=== PATIENT | male | born 1955 | race Caucasian/White ===

== ENCOUNTER 2020-12-03 18:54 | Inpatient (IN) | payer MEDICARE, MEDICAID ==
[~2020-12-03] VITALS: Ht 193 cm; Wt 91.6 kg
--- NOTE | 2020-12-03 19:04 | EKG ---
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
[2020-12-03] MEDS ORDERED: IV NORMAL SALINE 1000ML BAG 1,000 ML IV ONE (19:15)
[2020-12-03] MEDS ORDERED: fentaNYL PF VIAL 100 MCG/2 ML VIAL IV ONE ×2 (19:45→22:15)
--- NOTE | 2020-12-03 19:48 | PHYS DOC ---
Past Medical History Past Medical History: COPD, High Cholesterol, Heart Disease Past Surgical History: Angioplasty, Coronary Bypass Surgery Smoking Status: Current Every Day Smoker Alcohol Use: Occasionally Drug Use: None General Adult EDM: Chief Complaint: CHEST PAIN HPI: HPI: Patient is a 65 year old male who presents with chest pain and shortness of breath. Onset was a week ago, but today was a little worse. Pain is pressure in right chest and achy arms. Pain is constant at night. Nothing improves. Activity worsens. No dizziness, no nausea, no vomiting. No leg swelling. Review of Systems: Review of Systems: Constitutional: Denies fever or chills Eyes: Denies redness or eye pain HENT: Denies nasal congestion or sore throat Respiratory: Denies cough Cardiovascular: Denies palpitations GI: Denies abdominal pain, nausea, or vomiting : Denies dysuria or hematuria Musculoskeletal: Denies back pain or joint pain Integument: Denies rash or skin lesions Neurologic: Denies headache, focal weakness or sensory changes Complete systems were reviewed and found to be within normal limits, except as documented in this note. Heart Score: C/O Chest Pain: Yes HEART Score for Chest Pain: HEART Score for Chest Pain Response (Comments) Value History Highly Suspicious 2 ECG Normal 0 Age >45 - < 65 1 Risk Factors >3 Risk Factors or Hx CAD 2 Troponin < Normal Limit 0 Total 5 Risk Factors: Risk Factors: DM, Current or recent (<one month) smoker, HTN, HLP, family history of CAD, obesity. Risk Scores: Score 0 - 3: 2.5% MACE over next 6 weeks - Discharge Home Score 4 - 6: 20.3% MACE over next 6 weeks - Admit for Clinical Observation Score 7 - 10: 72.7% MACE over next 6 weeks - Early Invasive Strategies Current Medications: Current Medications Medications (Trade) Dose Ordered Sig/Jose Antonio Start Time Stop Time Status Last Admin Dose Admin Sodium Chloride 1,000 ml @ 1,000 mls/hr 1X ONCE 12/03/20 19:15 12/03/20 20:14 UNV Physical Exam: PE: Constitutional: Well developed, well nourished, no acute distress, non-toxic appearance HENT: Normocephalic, atraumatic Eyes: EOMI, conjunctiva normal, no discharge Neck: Normal range of motion, mild posterior tenderness, supple Lungs & Thorax: No respiratory distress, equal chest rise and fall, clear to auscultation Cardiovascular: Regular rate and rhythm. No murmurs. Abdomen: Soft, no tenderness Skin: Warm, dry, no erythema, no rash Back: No tenderness, no CVA tenderness Extremities: No tenderness, ROM intact, no edema Neurologic: Alert and oriented X 3, normal motor function, normal sensory function, no focal deficits noted Psychologic: Affect normal, judgment normal EKG: EKG: obtained at 19:02 hrs 85 bpm QT 364 ms QTc 439 ms Sinus rhythm obtained 21:44 hrs 86 bpm QT 372 ms QTc 448 ms sinus rhythm Radiology/Procedures: Radiology/Procedures: PROCEDURE: CT ANGIOGRAPHY CHEST Exam: CT of chest with contrast INDICATION: Chest pain TECHNIQUE: Sequential axial images through the chest obtained following the administration of 100 mL of Omni 300 IV contrast. Sagittal and coronal reformatted images were reconstructed from the axial data and reviewed. 3-D reformatted images were reconstructed from the axial data and reviewed. Exposure: One or more of the following in the visualized dose reduction techniques were utilized for this examination: 1. Automated exposure control 2. Adjustment of the MA and/or KV according to patient size 3. Use of iterative of reconstructive technique Comparisons: 06/13/2020 FINDINGS: There is a 3 cm nodule in the left lobe of the thyroid gland. No enlarged mediastinal lymph nodes are identified. Heart size is normal. No pericardial effusion. Thoracic aorta has a normal cou rse and caliber. Pulmonary artery is not enlarged. Airways are patent. No consolidation or pneumothorax. Strandy opacities the dependent portion lungs likely representing atelectasis. No suspicious lung nodules. No pleural effusion or thickening. Visualized upper abdomen is unremarkable. No suspicious osseous lesions or acute fractures. IMPRESSION: 1. No pulmonary embolus identified within the main, lobar or segmental pulmonary arteries. 2. A 2 cm nodule in the left lobe of thyroid gland. Further evaluation with nonemergent/outpatient thyroid ultrasound is recommended if not already performed. Electronically signed by: Zuly Nicholson MD (12/03/2020 9:37 PM) [facility] Course & Med Decision Making: Course & Med Decision Making Pertinent Labs and Imaging studies reviewed. (See chart for details) Patient arrived via EMS. Patient presents with chest pain and shortness of breath. Patient does take aspirin as part of his medicine regimen and did take 4 today. EKG does not suggest NE. PE was unremarkable. Ordering CT angio. Cardiac enzyme levels normal. CT does not suggest pulmonary embolism. Prescribing pain meds. Will stay overnight and see cardiology in the morning. Patient requiring admission for further evaluation and treatment. Discussed with (hospitalist) who is in agreement with admission. Discussed findings and plan with patient, who acknowledges understanding and agreement. Karlene Disclaimer: Karlene Disclaimer: This electronic medical record was generated, in whole or in part, using a voice recognition dictation system. ISMA PATEL DO Dec 03, 2020 19:47
[2020-12-03 20:01] LABS: BASO # 0.1 x10^3/uL (0.0-0.2); BASO % 1 % (0-3); EOS # 0.1 x10^3/uL (0.0-0.7); EOS % 2 % (0-3); HEMATOCRIT 43.4 % (39.0-53.0); HEMOGLOBIN 14.7 g/dL (13.0-17.5); LYMPH # 1.6 x10^3/uL (1.0-4.8); LYMPH % 23 % (24-48); MEAN CORPUSCULAR HEMOGLOBIN 32 pg (25-35); MEAN CORPUSCULAR HGB CONC 34 g/dL (31-37); MEAN CORPUSCULAR VOLUME 94 fL (79-100); MONO # 0.5 x10^3/uL (0.0-1.1); MONO % 7 % (0-9); NEUT # 4.6 x10^3/uL (1.8-7.7); NEUT % 67 % (31-73); PLATELET COUNT 156 x10^3/uL (140-400); RED BLOOD COUNT 4.64 x10^6/uL (4.30-5.70); RED CELL DISTRIBUTION WIDTH 14.6 % (11.5-14.5); WHITE BLOOD COUNT 6.8 x10^3/uL (4.0-11.0)
[2020-12-03 20:03] LABS: CALCIUM 8.7 mg/dL (8.5-10.1); CREATININE 0.8 mg/dL (0.7-1.3); GFR 97.3; POTASSIUM 4.2 mmol/L (3.5-5.1)
[2020-12-03 20:09] LABS: ALBUMIN 3.5 g/dL (3.4-5.0); ALBUMIN/GLOBULIN RATIO 1.1 (1.0-1.7); MAGNESIUM 2.3 mg/dL (1.8-2.4); TOTAL BILIRUBIN 0.3 mg/dL (0.2-1.0); TOTAL PROTEIN 6.8 g/dL (6.4-8.2)
[2020-12-03] MEDS ORDERED: CONTRAST GIVEN. MC PRN (20:15)
[2020-12-03] MEDS ORDERED: IOHEXOL 350 MG/ML 100 ML VIAL. IV ONE (20:15)
--- NOTE | 2020-12-03 21:39 | RAD ---
Exam: CT of chest with contrast INDICATION: Chest pain TECHNIQUE: Sequential axial images through the chest obtained following the administration of 100 mL of Omni 300 IV contrast. Sagittal and coronal reformatted images were reconstructed from the axial da ta and reviewed. 3-D reformatted images were reconstructed from the axial data and reviewed. Exposure: One or more of the following in the visualized dose reduction techniques were utilized for this examination: 1. Automated exposure control 2. Adjustment of the MA and/or KV according to patient size 3. Use of iterative of reconstructive technique Comparisons: 06/13/2020 FINDINGS: There is a 3 cm nodule in the left lobe of the thyroid gland. No enlarged mediastinal lymph nodes are identified. Heart size is normal. No pericardial effusion. Thoracic aorta has a normal course and caliber. Pulmon amandeep artery is not enlarged. Airways are patent. No consolidation or pneumothorax. Strandy opacities the dependent portion lungs l ikely representing atelectasis. No suspicious lung nodules. No pleural effusion or thickening. Visualized upper abdomen is unremarkable. No suspicious osseous lesions or acute fractures. IMPRESSION: 1. No pulmonary embolus identified within the main, lobar or segmental pulmonary arteries. 2. A 2 cm nodule in the left lobe of thyroid gland. Further evaluation with nonemergent/outpatient t hyroid ultrasound is recommended if not already performed. Electronically signed by: Zuly Nicholson MD (12/03/2020 9:37 PM) [facility]
[2020-12-03] MEDS ORDERED: ONDANSETRON PF 4 MG/2 ML VIAL. IV PRN (23:15)
[2020-12-04] VITALS (7 sets, daily range): BP systolic 118–157; BP diastolic 73–91
[2020-12-04] MEDS: fentaNYL PF VIAL 100 MCG/2 ML VIAL IV PRN (00:51)
--- NOTE | 2020-12-04 00:56 | NUR ---
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 Call light placed in reach.
[2020-12-04] MEDS ORDERED: METO50TA6 PO (01:19)
[2020-12-04] MEDS ORDERED: CRESTOR40 MG PO (01:19)
[2020-12-04] MEDS ORDERED: TICA90TA PO (01:19)
[2020-12-04] MEDS ORDERED: PANT40TA77 PO (01:19)
[2020-12-04] MEDS ORDERED: LISI20TA18 PO (01:19)
[2020-12-04] MEDS ORDERED: ASPI-630 PO (01:19)
[2020-12-04] MEDS ORDERED: ALBU2.5V8 IH (01:19)
[2020-12-04 05:09] LABS: CHOLESTEROL/HDL RATIO 3.2
--- NOTE | 2020-12-04 07:20 | PDOC1 ---
History and Physical Date of Admission Date of Admission DATE: 12/04/20 TIME: 07:15 Identification/Chief Complaint Chief Complaint Chest pain Source Source: Chart review, Patient History of Present Illness History of Present Illness Patient 65-year-old male with past medical history CAD with stents, HLD, COPD, tobacco abuse, presents to the ED with complaints of substernal chest pain for the past week. Reports achy chest pain that feels more like pressure, 8/10, that radiates to his left arm. Associated diaphoresis and shortness of breath, but states his shortness of breath is chronic. Symptoms worse with activity, and he denies any alleviating factors. Denies any nausea or vomiting. He took four aspirin 81 mg at home today for symptoms without improvement. Labs in the ED are largely unremarkable aside from triglycerides 159, BUN 17, creatinine 0.8, with BUN/creatinine ratio 21. Troponins <0.017 x 2. CTA chest without any evidence of PE, but did comment on 2 cm left thyroid nodule. Patient was admitted for further medical management. Past Medical History Past Medical History COPD, CA Past Surgical History Past Surgical History Cardiac stents x9 Family History Family History: Heart Disease Social History Smoke: 1 pack per day ALCOHOL: occassional Drugs: None Current Medications Current Medications Current Medications Sodium Chloride 1,000 ml @ 1,000 mls/hr 1X ONCE IV Last administered on 12/03/20at 19:35; Start 12/03/20 at 19:15; Stop 12/03/20 at 20:14; Status DC Fentanyl Citrate (Fentanyl 2ml Vial) 50 mcg 1X ONCE IV Last administered on 12/03/20at 20:00; Start 12/03/20 at 19:45; Stop 12/03/20 at 19:46; Status DC Iohexol (Omnipaque 350 Mg/ml) 100 ml 1X ONCE IV Last administered on 12/03/20at 21:22; Start 12/03/20 at 20:15; Stop 12/03/20 at 20:16; Status DC Info (CONTRAST GIVEN -- Rx MONITORING) 1 each PRN DAILY PRN MC SEE COMMENTS; Start 12/03/20 at 20:15; Stop 12/05/20 at 20:14 Fentanyl Citrate (Fentanyl 2ml Vial) 50 mcg 1X ONCE IV Last administered on 12/03/20at 22:17; Start 12/03/20 at 22:15; Stop 12/03/20 at 22:16; Status DC Ondansetron HCl (Zofran) 4 mg PRN Q8HRS PRN IV NAUSEA/VOMITING; Start 12/03/20 at 23:15; Stop 12/04/20 at 23:14 Fentanyl Citrate (Fentanyl 2ml Vial) 50 mcg PRN Q2HR PRN IV PAIN Last administered on 12/04/20at 00:51; Start 12/03/20 at 23:15 Active Scripts Active Reported Proair Hfa Inhaler (Albuterol Sulfate) 8.5 Gm Hfa.aer.ad 2 Puff IH PRN Q4-6HRS PRN 21 Days Protonix (Pantoprazole Sodium) 40 Mg Tablet.dr 40 Mg PO DAILYAC Crestor (Rosuvastatin Calcium) 40 Mg Tablet 1 Tab PO DAILY Lisinopril 20 Mg Tablet 1 Tab PO DAILY Metoprolol Tartrate 50 Mg Tablet 1 Tab PO BID Aspirin 81 Mg Tab.chew 1 Tab PO DAILY Brilinta (Ticagrelor) 90 Mg Tablet 90 Mg PO BID Allergies Allergies: Coded Allergies: No Known Drug Allergies (Unverified , 12/03/20) ROS Review of System GENERAL: Diaphoresis. No history of weight change, weakness or fevers. SKIN: No bruising, hair changes or rashes. EYES: No blurred, double or loss of vision. NOSE AND THROAT: No history of nosebleeds, hoarseness or sore throat. HEART: Chest pain. Denies palpitations. LUNGS: Shortness of breath. Denies cough, hemoptysis, or wheezing. GASTROINTESTINAL: Denies nausea, vomiting, abdominal pain. GENITOURINARY: Denies dysuria, frequency, urgency, hematuria. NEUROLOGIC: Denies history of numbness, tingling, tremor or weakness. PSYCHIATRIC: Denies anxiety, denies depression. ENDOCRINE: No history of heat or cold intolerance, polyuria or polydipsia. EXTREMITIES: Denies muscle weakness, joint pain, pain on walking or stiffness. Physical Exam Physical Exam General: Alert, Oriented X3, Cooperative, No acute distress HEENT: PERRLA, EOMI Lungs: Clear to auscultation, Normal air movement Heart: RRR, no murmurs Cardiovascular: S1, S2 Abdomen: Normal bowel sounds, Soft, No tenderness Extremities: No clubbing, No cyanosis Skin: No rashes, No significant lesion Neuro: Normal speech, Normal tone, Sensation intact Psych/Mental Status: Mental status NL, Mood NL Vitals Vitals Vital Signs Date Time Temp Pulse Resp B/P (MAP) Pulse Ox O2 Delivery O2 Flow Rate FiO2 12/04/20 02:49 97.5 85 16 151/84 (106) 92 Room Air 97.5 Labs Labs Laboratory Tests Test 12/03/20 19:27 12/04/20 04:10 White Blood Count 6.8 x10^3/uL (4.0-11.0) Red Blood Count 4.64 x10^6/uL (4.30-5.70) Hemoglobin 14.7 g/dL (13.0-17.5) Hematocrit 43.4 % (39.0-53.0) Mean Corpuscular Volume 94 fL (79-100) Mean Corpuscular Hemoglobin 32 pg (25-35) Mean Corpuscular Hemoglobin Concent 34 g/dL (31-37) Red Cell Distribution Width 14.6 % (11.5-14.5) Platelet Count 156 x10^3/uL (140-400) Neutrophils (%) (Auto) 67 % (31-73) Lymphocytes (%) (Auto) 23 % (24-48) Monocytes (%) (Auto) 7 % (0-9) Eosinophils (%) (Auto) 2 % (0-3) Basophils (%) (Auto) 1 % (0-3) Neutrophils # (Auto) 4.6 x10^3/uL (1.8-7.7) Lymphocytes # (Auto) 1.6 x10^3/uL (1.0-4.8) Monocytes # (Auto) 0.5 x10^3/uL (0.0-1.1) Eosinophils # (Auto) 0.1 x10^3/uL (0.0-0.7) Basophils # (Auto) 0.1 x10^3/uL (0.0-0.2) Sodium Level 139 mmol/L (136-145) Potassium Level 4.2 mmol/L (3.5-5.1) Chloride Level 105 mmol/L (98-107) Carbon Dioxide Level 23 mmol/L (21-32) Anion Gap 11 (6-14) Blood Urea Nitrogen 17 mg/dL (8-26) Creatinine 0.8 mg/dL (0.7-1.3) Estimated GFR (Cockcroft-Gault) 97.3 BUN/Creatinine Ratio 21 (6-20) Glucose Level 80 mg/dL (70-99) Calcium Level 8.7 mg/dL (8.5-10.1) Magnesium Level 2.3 mg/dL (1.8-2.4) Total Bilirubin 0.3 mg/dL (0.2-1.0) Aspartate Amino Transf (AST/SGOT) 20 U/L (15-37) Alanine Aminotransferase (ALT/SGPT) 26 U/L (16-63) Alkaline Phosphatase 57 U/L (46-116) Creatine Kinase 121 U/L (39-308) Creatine Kinase MB (Mass) 1.1 ng/mL (0.0-3.6) Creatine Kinase MB Relative Index 0.9 % (0-4) Troponin I Quantitative < 0.017 ng/mL (0.000-0.055) < 0.017 ng/mL (0.000-0.055) MI-Fgs-H-Type Natriuretic Peptide 26 pg/mL (0-124) Total Protein 6.8 g/dL (6.4-8.2) Albumin 3.5 g/dL (3.4-5.0) Albumin/Globulin Ratio 1.1 (1.0-1.7) Lipase 242 U/L (73-393) Triglycerides Level 159 mg/dL (0-150) Cholesterol Level 157 mg/dL (0-200) LDL Cholesterol, Calculated 76 mg/dL (0-100) VLDL Cholesterol, Calculated 32 mg/dL (0-40) Non-HDL Cholesterol Calculated 108 mg/dL (0-129) HDL Cholesterol 49 mg/dL (40-60) Cholesterol/HDL Ratio 3.2 Laboratory Tests Test 12/03/20 19:27 12/04/20 04:10 White Blood Count 6.8 x10^3/uL (4.0-11.0) Red Blood Count 4.64 x10^6/uL (4.30-5.70) Hemoglobin 14.7 g/dL (13.0-17.5) Hematocrit 43.4 % (39.0-53.0) Mean Corpuscular Volume 94 fL (79-100) Mean Corpuscular Hemoglobin 32 pg (25-35) Mean Corpuscular Hemoglobin Concent 34 g/dL (31-37) Red Cell Distribution Width 14.6 % (11.5-14.5) Platelet Count 156 x10^3/uL (140-400) Neutrophils (%) (Auto) 67 % (31-73) Lymphocytes (%) (Auto) 23 % (24-48) Monocytes (%) (Auto) 7 % (0-9) Eosinophils (%) (Auto) 2 % (0-3) Basophils (%) (Auto) 1 % (0-3) Neutrophils # (Auto) 4.6 x10^3/uL (1.8-7.7) Lymphocytes # (Auto) 1.6 x10^3/uL (1.0-4.8) Monocytes # (Auto) 0.5 x10^3/uL (0.0-1.1) Eosinophils # (Auto) 0.1 x10^3/uL (0.0-0.7) Basophils # (Auto) 0.1 x10^3/uL (0.0-0.2) Sodium Level 139 mmol/L (136-145) Potassium Level 4.2 mmol/L (3.5-5.1) Chloride Level 105 mmol/L (98-107) Carbon Dioxide Level 23 mmol/L (21-32) Anion Gap 11 (6-14) Blood Urea Nitrogen 17 mg/dL (8-26) Creatinine 0.8 mg/dL (0.7-1.3) Estimated GFR (Cockcroft-Gault) 97.3 BUN/Creatinine Ratio 21 (6-20) Glucose Level 80 mg/dL (70-99) Calcium Level 8.7 mg/dL (8.5-10.1) Magnesium Level 2.3 mg/dL (1.8-2.4) Total Bilirubin 0.3 mg/dL (0.2-1.0) Aspartate Amino Transf (AST/SGOT) 20 U/L (15-37) Alanine Aminotransferase (ALT/SGPT) 26 U/L (16-63) Alkaline Phosphatase 57 U/L (46-116) Creatine Kinase 121 U/L (39-308) Creatine Kinase MB (Mass) 1.1 ng/mL (0.0-3.6) Creatine Kinase MB Relative Index 0.9 % (0-4) Troponin I Quantitative < 0.017 ng/mL (0.000-0.055) < 0.017 ng/mL (0.000-0.055) ED-Mfi-R-Type Natriuretic Peptide 26 pg/mL (0-124) Total Protein 6.8 g/dL (6.4-8.2) Albumin 3.5 g/dL (3.4-5.0) Albumin/Globulin Ratio 1.1 (1.0-1.7) Lipase 242 U/L (73-393) Triglycerides Level 159 mg/dL (0-150) Cholesterol Level 157 mg/dL (0-200) LDL Cholesterol, Calculated 76 mg/dL (0-100) VLDL Cholesterol, Calculated 32 mg/dL (0-40) Non-HDL Cholesterol Calculated 108 mg/dL (0-129) HDL Cholesterol 49 mg/dL (40-60) Cholesterol/HDL Ratio 3.2 Images Images PATIENT: ABELARDO JACKSON ACCOUNT: [id number] : 1955 LOCATION: ER AGE: 65 SEX: M EXAM STATUS: REG ER ORD. PHYSICIAN: ISMA PATEL DO REASON: chest pain eval for PE PROCEDURE: CT ANGIOGRAPHY CHEST Exam: CT of chest with contrast INDICATION: Chest pain TECHNIQUE: Sequential axial images through the chest obtained following the administration of 100 mL of Omni 300 IV contrast. Sagittal and coronal reformatted images were reconstructed from the axial data and reviewed. 3-D reformatted images were reconstructed from the axial data and reviewed. Exposure: One or more of the following in the visualized dose reduction techniques were utilized for this examination: 1. Automated exposure control 2. Adjustment of the MA and/or KV according to patient size 3. Use of iterative of reconstructive technique Comparisons: 06/13/2020 FINDINGS: There is a 3 cm nodule in the left lobe of the thyroid gland. No enlarged mediastinal lymph nodes are identified. Heart size is normal. No pericardial effusion. Thoracic aorta has a normal course and caliber. Pulmonary artery is not enlarged. Airways are patent. No consolidation or pneumothorax. Strandy opacities the dependent portion lungs likely representing atelectasis. No suspicious lung nodules. No pleural effusion or thickening. Visualized upper abdomen is unremarkable. No suspicious osseous lesions or acute fractures. IMPRESSION: 1. No pulmonary embolus identified within the main, lobar or segmental pulmonary arteries. 2. A 2 cm nodule in the left lobe of thyroid gland. Further evaluation with nonemergent/outpatient thyroid ultrasound is recommended if not already performed. VTE Prophylaxis Ordered VTE Prophylaxis Devices: No VTE Pharmacological Prophylaxi: Yes Assessment/Plan Assessment/Plan Unstable angina CAD HLD COPD Dehydration 2 cm left thyroid nodule Tobacco abuse Plan: Troponins 0.017x3; still with complaints of chest pain at rest. Consultation placed to cardiology; discussed with Dr. Ruby, will observe overnight and consider [facility] tomorrow. Will obtain echocardiogram Morphine, nitroglycerin as needed IV fluids TSH 1.922 (within normal limits); recommend outpatient thyroid ultrasound. Return home medications FEN - Cardiac diet PPX - Heparin FULL CODE Dispo - OBS for above Justifications for Admission Other Justification JANE DONNELLY MD Dec 04, 2020 07:20
[2020-12-04] MEDS ORDERED: hydrALAZINE 20 MG/ML VIAL. IVP PRN (08:00)
[2020-12-04] MEDS ORDERED: NICOTINE 21MG PATCH. TD PRN (08:00)
[2020-12-04] MEDS ORDERED: MORPHINE SULFATE 4 MG/ML INJ. IV PRN (08:00)
[2020-12-04] MEDS ORDERED: NITROGLYCERIN SUBLINGUAL 0.4 MG BOTTLE OF 25. SL PRN (08:00)
[2020-12-04] MEDS: LISINOPRIL 20 MG TABLET PO SCH (09:07)
[2020-12-04] MEDS: TICAGRELOR 90 MG TABLET. PO SCH ×2 (09:07→21:32)
[2020-12-04] MEDS: METOPROLOL TART IMMED RELEASE 50 MG TABLET. PO SCH ×2 (09:07→21:32)
[2020-12-04] MEDS: ASPIRIN CHEWABLE 81 MG TABLET. PO SCH (09:07)
--- NOTE | 2020-12-04 14:55 | EKG ---
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
--- NOTE | 2020-12-04 15:55 | PDOC2 ---
CONSULT Date of Consult Date of Consult DATE: 12/04/20 TIME: 15:49 Reason for Consult Reason for Consult: Chest pain Referring Physician Referring Physician: Dr. Bowens Identification/Chief Complaint Chief Complaint Chest pain and shortness of breath Source Source: Chart review, Patient History of Present Illness Reason for Visit: The patient is a 65-year-old male who was admitted through the emergency room for 1 week of chest pain and shortness of breath. This had mildly increased in the past day. His initial EKG showed a sinus rhythm with no acute ischemic changes. A CTA of the chest showed no evidence of PE. His troponins have been normal x3. He reports a history of coronary disease with multiple previous interventions. He has been previously followed by [facility]. He continues to smoke 1 pack of cigarettes a day. He appears reasonably comfortable in bed but reports mild chest pressure. Past Medical History Cardiovascular: CAD, CHF, HTN, Hyperlipidemia Pulmonary: COPD Past Surgical History Past Surgical History: Other (Coronary stenting.) Family History Family History: Heart Disease Social History 1 pack per day ALCOHOL: occassional Drugs: None Current Medications Current Medications Current Medications Sodium Chloride 1,000 ml @ 1,000 mls/hr 1X ONCE IV Last administered on 12/03/20at 19:35; Start 12/03/20 at 19:15; Stop 12/03/20 at 20:14; Status DC Fentanyl Citrate (Fentanyl 2ml Vial) 50 mcg 1X ONCE IV Last administered on 12/03/20at 20:00; Start 12/03/20 at 19:45; Stop 12/03/20 at 19:46; Status DC Iohexol (Omnipaque 350 Mg/ml) 100 ml 1X ONCE IV Last administered on 12/03/20at 21:22; Start 12/03/20 at 20:15; Stop 12/03/20 at 20:16; Status DC Info (CONTRAST GIVEN -- Rx MONITORING) 1 each PRN DAILY PRN MC SEE COMMENTS; Start 12/03/20 at 20:15; Stop 12/05/20 at 20:14 Fentanyl Citrate (Fentanyl 2ml Vial) 50 mcg 1X ONCE IV Last administered on 12/03/20at 22:17; Start 12/03/20 at 22:15; Stop 12/03/20 at 22:16; Status DC Ondansetron HCl (Zofran) 4 mg PRN Q8HRS PRN IV NAUSEA/VOMITING; Start 12/03/20 at 23:15; Stop 12/04/20 at 23:14 Fentanyl Citrate (Fentanyl 2ml Vial) 50 mcg PRN Q2HR PRN IV PAIN Last administered on 12/04/20at 00:51; Start 12/03/20 at 23:15 Nicotine (Nicoderm Cq 21mg) 1 patch PRN DAILY PRN TD SMOKING CESSATION; Start 12/04/20 at 08:00 Morphine Sulfate (Morphine Sulfate) 4 mg PRN Q2HR PRN IV PAIN; Start 12/04/20 at 08:00 Nitroglycerin (Nitrostat) 0.4 mg PRN Q5MIN PRN SL CHEST PAIN; Start 12/04/20 at 08:00 Hydralazine HCl (Apresoline Inj) 10 mg PRN Q4HRS PRN IVP ELEVATED BP, SEE COMMENTS; Start 12/04/20 at 08:00 Aspirin (Aspirin Chewable) 81 mg DAILY PO Last administered on 12/04/20at 09:07; Start 12/04/20 at 09:00 Lisinopril (Prinivil) 20 mg DAILY PO Last administered on 12/04/20at 09:07; Start 12/04/20 at 09:00 Metoprolol Tartrate (Lopressor) 50 mg BID PO Last administered on 12/04/20at 09:07; Start 12/04/20 at 09:00 Pantoprazole Sodium (Protonix) 40 mg DAILYAC PO ; Start 12/05/20 at 07:30 Ticagrelor (Brilinta) 90 mg BID PO Last administered on 12/04/20at 09:07; Start 12/04/20 at 09:00 Atorvastatin Calcium (Lipitor) 80 mg QHS PO ; Start 12/04/20 at 21:00 Active Scripts Active Reported Proair Hfa Inhaler (Albuterol Sulfate) 8.5 Gm Hfa.aer.ad 2 Puff IH PRN Q4-6HRS PRN 21 Days Protonix (Pantoprazole Sodium) 40 Mg Tablet.dr 40 Mg PO DAILYAC Crestor (Rosuvastatin Calcium) 40 Mg Tablet 1 Tab PO DAILY Lisinopril 20 Mg Tablet 1 Tab PO DAILY Metoprolol Tartrate 50 Mg Tablet 1 Tab PO BID Aspirin 81 Mg Tab.chew 1 Tab PO DAILY Brilinta (Ticagrelor) 90 Mg Tablet 90 Mg PO BID Allergies Allergies: Coded Allergies: No Known Drug Allergies (Unverified , 12/03/20) ROS Respiratory: YES: SOB with excertion Cardiovascular: yes Chest Pain Physical Exam General: No acute distress Lungs: Other (Mildly decreased breath sounds) Heart: Regular rate Abdomen: Normal bowel sounds Vitals VITALS Vital Signs Date Time Temp Pulse Resp B/P (MAP) Pulse Ox O2 Delivery O2 Flow Rate FiO2 12/04/20 15:00 97.8 74 20 121/73 (89) 94 Room Air 97.8 Labs Labs Laboratory Tests Test 12/03/20 19:27 12/04/20 04:10 12/04/20 09:10 White Blood Count 6.8 x10^3/uL (4.0-11.0) Red Blood Count 4.64 x10^6/uL (4.30-5.70) Hemoglobin 14.7 g/dL (13.0-17.5) Hematocrit 43.4 % (39.0-53.0) Mean Corpuscular Volume 94 fL (79-100) Mean Corpuscular Hemoglobin 32 pg (25-35) Mean Corpuscular Hemoglobin Concent 34 g/dL (31-37) Red Cell Distribution Width 14.6 % (11.5-14.5) Platelet Count 156 x10^3/uL (140-400) Neutrophils (%) (Auto) 67 % (31-73) Lymphocytes (%) (Auto) 23 % (24-48) Monocytes (%) (Auto) 7 % (0-9) Eosinophils (%) (Auto) 2 % (0-3) Basophils (%) (Auto) 1 % (0-3) Neutrophils # (Auto) 4.6 x10^3/uL (1.8-7.7) Lymphocytes # (Auto) 1.6 x10^3/uL (1.0-4.8) Monocytes # (Auto) 0.5 x10^3/uL (0.0-1.1) Eosinophils # (Auto) 0.1 x10^3/uL (0.0-0.7) Basophils # (Auto) 0.1 x10^3/uL (0.0-0.2) Sodium Level 139 mmol/L (136-145) Potassium Level 4.2 mmol/L (3.5-5.1) Chloride Level 105 mmol/L (98-107) Carbon Dioxide Level 23 mmol/L (21-32) Anion Gap 11 (6-14) Blood Urea Nitrogen 17 mg/dL (8-26) Creatinine 0.8 mg/dL (0.7-1.3) Estimated GFR (Cockcroft-Gault) 97.3 BUN/Creatinine Ratio 21 (6-20) Glucose Level 80 mg/dL (70-99) Calcium Level 8.7 mg/dL (8.5-10.1) Magnesium Level 2.3 mg/dL (1.8-2.4) Total Bilirubin 0.3 mg/dL (0.2-1.0) Aspartate Amino Transf (AST/SGOT) 20 U/L (15-37) Alanine Aminotransferase (ALT/SGPT) 26 U/L (16-63) Alkaline Phosphatase 57 U/L (46-116) Creatine Kinase 121 U/L (39-308) Creatine Kinase MB (Mass) 1.1 ng/mL (0.0-3.6) Creatine Kinase MB Relative Index 0.9 % (0-4) Troponin I Quantitative < 0.017 ng/mL (0.000-0.055) < 0.017 ng/mL (0.000-0.055) < 0.017 ng/mL (0.000-0.055) LR-Qrh-O-Type Natriuretic Peptide 26 pg/mL (0-124) Total Protein 6.8 g/dL (6.4-8.2) Albumin 3.5 g/dL (3.4-5.0) Albumin/Globulin Ratio 1.1 (1.0-1.7) Lipase 242 U/L (73-393) Triglycerides Level 159 mg/dL (0-150) Cholesterol Level 157 mg/dL (0-200) LDL Cholesterol, Calculated 76 mg/dL (0-100) VLDL Cholesterol, Calculated 32 mg/dL (0-40) Non-HDL Cholesterol Calculated 108 mg/dL (0-129) HDL Cholesterol 49 mg/dL (40-60) Cholesterol/HDL Ratio 3.2 Thyroid Stimulating Hormone (TSH) 1.922 uIU/mL (0.358-3.74) Laboratory Tests Test 12/03/20 19:27 12/04/20 04:10 12/04/20 09:10 White Blood Count 6.8 x10^3/uL (4.0-11.0) Red Blood Count 4.64 x10^6/uL (4.30-5.70) Hemoglobin 14.7 g/dL (13.0-17.5) Hematocrit 43.4 % (39.0-53.0) Mean Corpuscular Volume 94 fL (79-100) Mean Corpuscular Hemoglobin 32 pg (25-35) Mean Corpuscular Hemoglobin Concent 34 g/dL (31-37) Red Cell Distribution Width 14.6 % (11.5-14.5) Platelet Count 156 x10^3/uL (140-400) Neutrophils (%) (Auto) 67 % (31-73) Lymphocytes (%) (Auto) 23 % (24-48) Monocytes (%) (Auto) 7 % (0-9) Eosinophils (%) (Auto) 2 % (0-3) Basophils (%) (Auto) 1 % (0-3) Neutrophils # (Auto) 4.6 x10^3/uL (1.8-7.7) Lymphocytes # (Auto) 1.6 x10^3/uL (1.0-4.8) Monocytes # (Auto) 0.5 x10^3/uL (0.0-1.1) Eosinophils # (Auto) 0.1 x10^3/uL (0.0-0.7) Basophils # (Auto) 0.1 x10^3/uL (0.0-0.2) Sodium Level 139 mmol/L (136-145) Potassium Level 4.2 mmol/L (3.5-5.1) Chloride Level 105 mmol/L (98-107) Carbon Dioxide Level 23 mmol/L (21-32) Anion Gap 11 (6-14) Blood Urea Nitrogen 17 mg/dL (8-26) Creatinine 0.8 mg/dL (0.7-1.3) Estimated GFR (Cockcroft-Gault) 97.3 BUN/Creatinine Ratio 21 (6-20) Glucose Level 80 mg/dL (70-99) Calcium Level 8.7 mg/dL (8.5-10.1) Magnesium Level 2.3 mg/dL (1.8-2.4) Total Bilirubin 0.3 mg/dL (0.2-1.0) Aspartate Amino Transf (AST/SGOT) 20 U/L (15-37) Alanine Aminotransferase (ALT/SGPT) 26 U/L (16-63) Alkaline Phosphatase 57 U/L (46-116) Creatine Kinase 121 U/L (39-308) Creatine Kinase MB (Mass) 1.1 ng/mL (0.0-3.6) Creatine Kinase MB Relative Index 0.9 % (0-4) Troponin I Quantitative < 0.017 ng/mL (0.000-0.055) < 0.017 ng/mL (0.000-0.055) < 0.017 ng/mL (0.000-0.055) TB-Rdo-U-Type Natriuretic Peptide 26 pg/mL (0-124) Total Protein 6.8 g/dL (6.4-8.2) Albumin 3.5 g/dL (3.4-5.0) Albumin/Globulin Ratio 1.1 (1.0-1.7) Lipase 242 U/L (73-393) Triglycerides Level 159 mg/dL (0-150) Cholesterol Level 157 mg/dL (0-200) LDL Cholesterol, Calculated 76 mg/dL (0-100) VLDL Cholesterol, Calculated 32 mg/dL (0-40) Non-HDL Cholesterol Calculated 108 mg/dL (0-129) HDL Cholesterol 49 mg/dL (40-60) Cholesterol/HDL Ratio 3.2 Thyroid Stimulating Hormone (TSH) 1.922 uIU/mL (0.358-3.74) Images Images CTA of the chest shows no pulmonary emboli. Assessment/Plan Assessment/Plan 1. Chest pain. As noted above the patient has had chest pain for the past week. It mildly increased prior to admission has now improved but is still present. His troponins have been normal x3. He has a history of coronary disease with previous stenting and has been followed at [facility]. At this time we will continue on present medical treatment. We will attempt to gradually increase activities. We will obtain records from [facility]. We will continue the patient n.p.o. after midnight tonight with consideration of possible catheterization tomorrow. 2. Hypertension. Patient blood pressure is under good control. 3. Hyperlipidemia. We will continue medications and check lab. 4. COPD. Continued tobacco abuse. We will continue pulmonary treatments. CIRA TEE MD Dec 04, 2020 15:55
[2020-12-04] MEDS: ATORVASTATIN CALCIUM 40 MG TABLET. PO SCH (21:32)
[2020-12-05] VITALS (7 sets, daily range): BP systolic 114–131; BP diastolic 56–79
--- NOTE | 2020-12-05 10:50 | NUR ---
SS following for discharge planning. SS reviewed pt chart and discussed with pt RN. Pt is from home and is currently on room air. Cardiology consulted. ECHO ordered. Possible need for heart cath. SS will continue to follow for discharge planning.
[2020-12-05] MEDS: ASPIRIN CHEWABLE 81 MG TABLET. PO SCH (11:27)
[2020-12-05] MEDS: TICAGRELOR 90 MG TABLET. PO SCH ×2 (11:27→19:46)
[2020-12-05] MEDS: LISINOPRIL 20 MG TABLET PO SCH (11:27)
[2020-12-05] MEDS: METOPROLOL TART IMMED RELEASE 50 MG TABLET. PO SCH ×2 (11:28→19:47)
[2020-12-05] MEDS: PANTOPRAZOLE 40 MG TABLET.DR. PO SCH (11:28)
[2020-12-05] MEDS ORDERED: IOHEXOL 300 MG/ML 100ML VIAL. ONE (12:09)
[2020-12-05] MEDS ORDERED: LIDOCAINE 1% PF 2 ML VIAL. ONE (12:09)
--- NOTE | 2020-12-05 12:11 | PDOC ---
[employer] PROGRESS NOTE Date of Service DOS: DATE: 12/05/20 TIME: 12:02 Chief Complaint Chief Complaint Chest Pain PMH of CAD History of Present Illness History of Present Illness Patient 65-year-old male who complains of chest pain with past medical history CAD with stents, HLD, COPD, tobacco abuse, presents to the ED with complaints of substernal chest pain for the past week. Reports achy chest pain that feels more like pressure, 8/10, that radiates to his left arm. Associated diaphoresis and shortness of breath, but states his shortness of breath is chronic. Symptoms worse with activity, and he denies any alleviating factors. Denies any nausea or vomiting. He took four aspirin 81 mg at home today for symptoms without improvement. Labs in the ED are largely unremarkable aside from triglycerides 159, BUN 17, creatinine 0.8, with BUN/creatinine ratio 21. Troponins <0.017 x 2. CTA chest without any evidence of PE, but did comment on 2 cm left thyroid nodule. Patient was admitted for further medical management. 12/05/2020 Pt seen and examined at bedside DW RN Chart Reviewed Vitals/I&O Vitals/I&O: Vital Signs Date Time Temp Pulse Resp B/P (MAP) Pulse Ox O2 Delivery O2 Flow Rate FiO2 12/05/20 11:28 94 131/75 12/05/20 11:00 97.6 94 Room Air 97.6 12/05/20 03:25 16 I & O 12/04/20 12/04/20 12/05/20 15:00 23:00 07:00 Intake Total 660 ml 0 ml Balance 660 ml 0 ml Physical Exam General: Alert, Oriented X3, No acute distress Heart: Regular rate Abdomen: Normal bowel sounds Review of Systems Review of Systems: denies any dizziness or HERNANDEZ denies UE/ LE weakness Assessment and Plan Assessmemt and Plan Chest pain Previous known CAD with 9 stents Plan Cardiac monitoring Serial cardiac enzymes Serial EKG Awaiting cardiac input Awaiting Echo Awaiting past medical records from [facility] DVT prophylaxsis Appreciate cardiology input Full Code Comment Review of Relevant I have reviewed the following items richard (where applicable) has been applied. Medications: Current Medications Medications (Trade) Dose Ordered Sig/Jose Antonio Route PRN Reason Start Time Stop Time Status Last Admin Dose Admin Pantoprazole Sodium (Protonix) 40 mg DAILYAC PO 12/05/20 07:30 12/05/20 11:28 Atorvastatin Calcium (Lipitor) 80 mg QHS PO 12/04/20 21:00 12/04/20 21:32 Justifications for Admission Other Justification MULU JAY III DO Dec 05, 2020 12:10
[2020-12-05] MEDS ORDERED: HEPARIN for IV BOLUS 10,000 UNIT/10 ML VIAL. ONE (12:37)
[2020-12-05] MEDS ORDERED: NITROGLYCERIN 200 MCG/2 ML SYRINGE FOR CATH/VASC LAB. ONE (12:37)
[2020-12-05] MEDS ORDERED: fentaNYL PF VIAL 100 MCG/2 ML VIAL ONE (12:37)
[2020-12-05] MEDS ORDERED: MIDAZOLAM HCL/PF 2 MG/2 ML VIAL. ONE (12:37)
[2020-12-05] MEDS ORDERED: VERAPAMIL 5 MG/2 ML VIAL. ONE (12:37)
--- NOTE | 2020-12-05 12:46 | PDOC ---
MODERATE SEDATION ASSESSMENT RISKS/ALTERNATIVES Risks/Alternatives Risks and alternatives of this type of sedation and procedure discussed with: RISK/ALTERNATIVES: Patient H & P ON CHART H & P H & P on chart and reviewed for co-morbid conditions and appropriate labs. H&P ON CHART: Yes STATUS PREG STATUS ASSESSED: N/A MEDS/ALLERGIES REVIEWED Meds/Allergies Reviewed Medications and Allergies including time and route of recently administered narcotics and sedatives. MEDS/ALLERGIES REVIEWED: Yes ASA RATING ASA RATING: III AIRWAY ASSESSMENT Airway Assessment Airway patency, oral function limitations, presence of caps, crowns, dentures, partials, and ability to extend neck assessed. AIRWAY ASSESSMENT: Yes MALLAMPATI SCORE MALLAMPATI SCORE: III PRE-SEDATION ASSESSMENT PRE-SEDATION ASSESSMENT: Yes SILVIO LUNA MD Dec 05, 2020 12:46
[2020-12-05] MEDS ORDERED: LIDOCAINE 1% Multi-Dose 20 ML VIAL. ONE (12:55)
[2020-12-05] MEDS ORDERED: PHENYLEPHRINE in 0.9% NACL PF 1 MG/10 ML SYRINGE. IV ONE ×2 (13:07→13:30)
[2020-12-05] MEDS ORDERED: LIDOCAINE 1% PF 2 ML VIAL. INJ ONE (13:30)
[2020-12-05] MEDS ORDERED: fentaNYL PF VIAL 100 MCG/2 ML VIAL IV ONE (13:30)
[2020-12-05] MEDS ORDERED: IOHEXOL 300 MG/ML 100ML VIAL. IART ONE (13:30)
[2020-12-05] MEDS ORDERED: HEPARIN for IV BOLUS 10,000 UNIT/10 ML VIAL. IART ONE (13:30)
[2020-12-05] MEDS ORDERED: MIDAZOLAM HCL/PF 2 MG/2 ML VIAL. IV ONE (13:30)
[2020-12-05] MEDS ORDERED: VERAPAMIL 5 MG/2 ML VIAL. IART ONE (13:30)
[2020-12-05] MEDS ORDERED: NITROGLYCERIN 200 MCG/2 ML SYRINGE FOR CATH/VASC LAB. IART ONE (13:30)
[2020-12-05] MEDS ORDERED: IV NORMAL SALINE 500ML BAG 500 ML IV ONE (13:30)
[2020-12-05] MEDS ORDERED: CONTRAST GIVEN. MC PRN (13:45)
[2020-12-05] MEDS: fentaNYL PF VIAL 100 MCG/2 ML VIAL IV PRN (14:28)
--- NOTE | 2020-12-05 15:45 | CARD ---
MR#: [id number] Date of Study: 12/05/2020 Ordering Physician: PATRICIA EVANS, Referring Physician: PATRICIA EVANS, Tech: RT Lilo(R) APPROVED REPORT Technologist: Khalida Rivas RT(R) Nurse: Nelida Catherine RN Procedure(s) performed: FLOURO TIME: 4.0 MINUTES DOSE: 46 Gycm2 CONTRAST: 53 OMNI 300 MODERATE SEDATION: 40 MINUTES Coronary angiography [facility] Clinical Frailty Scale [facility] Clinical Frailty Scale: Managing Well Heart Failure Heart Failure: No CASE TECHNIQUE IV conscious sedation was used throughout procedure with appropriate monitoring and was performed in the presence of a registered nurse who was an independent trained observer other than the physician p erforming the procedure. During this case, Fluoroscopy and low osmolar contrast were used for imaging . Specimen(s) Removed: N/A Estimated Blood loss: 15 cc's. PROCEDURE NARRATIVE Clinical information: 65-year-old male presents to the hospital for unstable angina Procedure details: After appropriate informed consent the right wrist was prepped and draped in usual sterile fashion. The patient's right radial artery had been previously accessed multiple times and there was some init ial spasm but ultimately a 6 Romanian sheath was able to be placed in the right radial artery. Next, a dvancement of a 6 Romanian catheter was difficult and therefore a 5 Romanian TIG catheter was used to per form diagnostic angiography of the right and left coronary arteries. At case completion the right ra dial sheath was removed and hemostasis was achieved via atrial radial band inflated to 12 mL. Of not e, during the patient's procedure after the radial cocktail was administered he had hypotension but t his resolved with fluid administration and 100 mcg of intravenous phenylephrine. Review of the patie nt's echocardiogram did not reveal any significant LV dysfunction or pericardial effusion. Suspect t hat the hypotension was likely related to intravascular volume depletion and administration of vasodi lators for prevention of radial artery spasm. No acute complications noted. Findings: Aorta 90/60 Coronary angiography: Left main is a large-caliber vessel with a distal 30% stenosis LAD is a large caliber vessel with 50% in-stent restenosis of a proximal to mid stent. D1 is a moderate caliber vessel with a proximal 50% stenosis Left circumflex is a moderate caliber nondominant vessel with mild luminal irregularities of up to 20 % OM1 is a moderate caliber vessel with a patent overlapping proximal and mid stents. There is trivial less than 20% in-stent restenosis RCA is a large caliber dominant vessel with diffuse 30% in-stent restenosis of overlapping proximal t o mid RCA stents. Conclusion 1. Three-vessel coronary artery disease 2. Patent stents in the RCA, left circumflex and LAD without any significant restenosis. Recommendations Aggressive Medical Therapy Signed by : Krystian Anderson, Electronically Approved : 12/05/2020 15:44:26
--- NOTE | 2020-12-05 16:41 | CARD ---
MR#: [id number] Date of Study: 12/05/2020 Ordering Physician: JANE DONNELLY, Referring Physician: JANE DONNELLY Tech: Sameer Gamez [facility] APPROVED REPORT EXAM: Two-dimensional and M-mode echocardiogram with Doppler and color Doppler. Other Information Quality : AverageHR: 73bpm Rhythm : NSR INDICATION CAD Chest Pain RISK FACTORS Hypertension Hyperlipidemia COPD 2D DIMENSIONS Left Atrium(2D)3.5 (1.6-4.0cm)IVSd1.2 (0.7-1.1cm) Aortic Root(2D)3.2 (2.0-3.7cm)LVDd4.4 (3.9-5.9cm) LVOT Diameter2.3 (1.8-2.4cm)PWd1.2 (0.7-1.1cm) LVDs2.4 (2.5-4.0cm)FS (%) 44.6 % SV65.6 ml Aortic Valve AoV Peak Trung.99.9cm/sAoV VTI20.5cm AO Peak GR.4.0mmHgLVOT Peak Trung.78.2cm/s AO Mean GR.2mmHgAVA (VMAX)3.12cm2 Mitral Valve MV E Yezjouga21.2cm/sMV E Peak Gr.3mmHg MV DECEL [id number] A Llanrmdg93.2cm/s MV E Mean Gr.1mmHgE/A Ratio0.8 Pulmonary Valve PV Peak Yxivwesl43.9cm/s Tricuspid Valve TR P. [id number]/sTR Peak Gr.17mmHg Pulmonary Vein S1 Lukhesae08.0cm/sD2 Utpwabaz58.4cm/s LEFT VENTRICLE The left ventricle is normal size. There is normal left ventricular wall thickness. The left ventricu lar systolic function is normal and the ejection fraction is within normal range. LV ejection fractio n is 55 to 60%. There is normal LV segmental wall motion. Transmitral Doppler flow pattern is Grade I -abnormal relaxation pattern. No left ventricle thrombus noted on this study. There is no ventricular septal defect visualized. There is no left ventricular aneurysm. There is no mass noted in the left ventricle. RIGHT VENTRICLE The right ventricle is normal size. There is normal right ventricular wall thickness. The right ventr icular systolic function is normal. ATRIA The left atrium size is normal. The right atrium size is normal. The interatrial septum is intact wit h no evidence for an atrial septal defect or patent foramen ovale as noted on 2-D or Doppler imaging. AORTIC VALVE The aortic valve is normal in structure and function. Doppler and Color Flow revealed no significant aortic regurgitation. There is no significant aortic valvular stenosis. There is no aortic valvular v egetation. MITRAL VALVE The mitral valve is normal in structure and function. There is no evidence of mitral valve prolapse. There is no mitral valve stenosis. Doppler and Color-flow revealed trace mitral regurgitation. TRICUSPID VALVE The tricuspid valve is normal in structure and function. Doppler and Color Flow revealed trace tricus pid regurgitation. There is no tricuspid valve prolapse or vegetation. There is no tricuspid valve st enosis. PULMONIC VALVE The pulmonary valve is normal in structure and function. Doppler and Color Flow revealed no pulmonic valvular regurgitation. There is no pulmonic valvular stenosis. GREAT VESSELS The aortic root is normal in size. The ascending aorta is normal in size. The pulmonary artery is nor mal. The IVC is normal in size and collapses >50% with inspiration. PERICARDIAL EFFUSION There is no pleural effusion. There is no evidence of significant pericardial effusion. Critical Notification Critical Value: No <Conclusion> The left ventricle is normal size. The left ventricular systolic function is normal and the ejection fraction is within normal range. LV ejection fraction is 55 to 60%. There is normal LV segmental wall motion. Doppler and Color Flow revealed no significant aortic regurgitation. There is no significant aortic valvular stenosis. Doppler and Color-flow revealed trace mitral regurgitation. Doppler and Color Flow revealed trace tricuspid regurgitation. Signed by : Elias Ahmadi MD Electronically Approved : 12/05/2020 16:41:31
[2020-12-05] MEDS: ATORVASTATIN CALCIUM 40 MG TABLET. PO SCH (19:46)
[2020-12-06 02:57] VITALS: BP 120/67
[2020-12-06 07:00] VITALS: BP 140/74
[2020-12-06] MEDS: LISINOPRIL 20 MG TABLET PO SCH (08:05)
[2020-12-06] MEDS: METOPROLOL TART IMMED RELEASE 50 MG TABLET. PO SCH (08:06)
[2020-12-06] MEDS: ASPIRIN CHEWABLE 81 MG TABLET. PO SCH (08:06)
[2020-12-06] MEDS: PANTOPRAZOLE 40 MG TABLET.DR. PO SCH (08:06)
[2020-12-06] MEDS: TICAGRELOR 90 MG TABLET. PO SCH (08:06)
--- NOTE | 2020-12-06 10:25 | PDOC ---
CARDIO Progress Notes Date and Time Date of Service 12/06/2020 Time of Evaluation 1010 Subjective Subjective: No Chest Pain, No shortness of breath, No Palpitations Vitals Vitals Vital Signs Date Time Temp Pulse Resp B/P (MAP) Pulse Ox O2 Delivery O2 Flow Rate FiO2 12/06/20 08:06 71 140/74 12/06/20 08:00 Room Air 12/06/20 07:00 97.3 16 93 97.3 12/05/20 13:32 2.0 Weight Weight [ ] Input and Output Intake and Output Intake and Output 12/06/20 07:00 Intake Total 580 ml Balance 580 ml Intake Oral 580 ml # Voids 4 Laboratory Labs Laboratory Tests Test 12/05/20 11:25 SARS-CoV-2 Antigen (Rapid) Negative (NEGATIVE) Physical Exam HEENT: Neck Supple W Full Motion Chest: Symmetric LUNGS: Clear to Auscultation Heart: S1S2, RRR (SR) Abdomen: Soft N/T Extremities: No Edema, No Calf Tenderness Neurology: alert, oriented, follow commands Assessment Assessment 1. Chest pain: LHC revealed patent stents. EF and WM nml 2. Hypertension: controlled 3. Hyperlipidemia 4. COPD with continued tobaccoism 5. CAD: past stents Recommendations 1. Secondary prevention measures. ASA/brilinta 2. Smoking cessation 3. Follow up with [facility] cardiology Justicifation of Admission Dx: Justifications for Admission: Justification of Admission Dx: Yes RAPHAEL [employer]ILLS [employer] COMMISSIONER Dec 06, 2020 10:25
--- NOTE | 2020-12-06 10:45 | PDOC ---
[facility] PROGRESS NOTE Date of Service DOS: DATE: 12/06/20 TIME: 10:40 Chief Complaint Chief Complaint Chest Pain PMH of CAD History of Present Illness History of Present Illness Patient 65-year-old male who complains of chest pain with past medical history CAD with stents, HLD, COPD, tobacco abuse, presents to the ED with complaints of substernal chest pain for the past week. Reports achy chest pain that feels more like pressure, 8/10, that radiates to his left arm. Associated diaphoresis and shortness of breath, but states his shortness of breath is chronic. Symptoms worse with activity, and he denies any alleviating factors. Denies any nausea or vomiting. He took four aspirin 81 mg at home today for symptoms without improvement. Labs in the ED are largely unremarkable aside from triglycerides 159, BUN 17, creatinine 0.8, with BUN/creatinine ratio 21. Troponins <0.017 x 2. CTA chest without any evidence of PE, but did comment on 2 cm left thyroid nodule. Patient was admitted for further medical management. 12/05/2020 Pt seen and examined at bedside DW RN Chart Reviewed 12/06/2020 Pt see and examined at bedside DW RN Chart Reviewed Discussed that no new stents were place per cardiology discussed probable discharge Vitals/I&O Vitals/I&O: Vital Signs Date Time Temp Pulse Resp B/P (MAP) Pulse Ox O2 Delivery O2 Flow Rate FiO2 12/06/20 08:06 71 140/74 12/06/20 08:00 Room Air 12/06/20 07:00 97.3 16 93 97.3 12/05/20 13:32 2.0 I & O 12/05/20 12/05/20 12/06/20 14:59 22:59 06:59 Intake Total 0 ml 480 ml 100 ml Balance 0 ml 480 ml 100 ml Physical Exam General: Alert, Oriented X3, Cooperative, No acute distress Heart: Regular rate, Normal S1, Normal S2 Abdomen: Normal bowel sounds Skin: No rashes Labs Labs: Laboratory Tests Test 12/05/20 11:25 SARS-CoV-2 Antigen (Rapid) Negative (NEGATIVE) Review of Systems Review of Systems: Continent bowel and bladder Denies pain Denies any weakness, numbness or tingling Denies dizziness or headaches Assessment and Plan Assessmemt and Plan Assessmemt and Plan Chest pain, resolving Previous known CAD with 9 stents Plan Cardiac monitoring Home Meds Medical Management Appreciate cardiology input Full Code Probable discharge in afternoon Comment Review of Relevant I have reviewed the following items richard (where applicable) has been applied. Medications: Current Medications Medications (Trade) Dose Ordered Sig/Jose Antonio Route PRN Reason Start Time Stop Time Status Last Admin Dose Admin Nitroglycerin (Nitroglycerin) 200 mcg 1X ONCE IART 12/05/20 13:30 12/05/20 13:31 DC 12/05/20 13:29 Verapamil HCl (Verapamil) 2.5 mg 1X ONCE IART 12/05/20 13:30 12/05/20 13:31 DC 12/05/20 13:28 Heparin Sodium (Porcine) (Heparin Sodium) 2,500 unit 1X ONCE IART 12/05/20 13:30 12/05/20 13:31 DC 12/05/20 13:30 Heparin Sodium/ Sodium Chloride (HEPARIN for ARTERIAL LINE FLUSH) 1,000 unit 1X ONCE IART 12/05/20 13:30 12/05/20 13:31 DC 12/05/20 13:27 Midazolam HCl (Versed) 2 mg 1X ONCE IV 12/05/20 13:30 12/05/20 13:31 DC 12/05/20 13:27 Fentanyl Citrate (Fentanyl 2ml Vial) 50 mcg 1X ONCE IV 12/05/20 13:30 12/05/20 13:31 DC 12/05/20 13:28 Iohexol (Omnipaque 300 Mg/ml) 53 ml 1X ONCE IART 12/05/20 13:30 12/05/20 13:31 DC 12/05/20 13:29 Lidocaine HCl (Xylocaine-Mpf 1% 2ml Vial) 2 ml 1X ONCE INJ 12/05/20 13:30 12/05/20 13:31 DC 12/05/20 13:27 Phenylephrine HCl (PHENYLEPHRINE in 0.9% NACL PF) 0.1 mg 1X ONCE IV 12/05/20 13:30 12/05/20 13:31 DC 12/05/20 13:28 Sodium Chloride 500 ml @ 500 mls/hr 1X ONCE IV 12/05/20 13:30 12/05/20 14:29 DC 12/05/20 13:09 Justifications for Admission Other Justification MULU JAY III DO Dec 06, 2020 10:45
[2020-12-06 10:49] VITALS: BP 124/62
--- NOTE | 2020-12-06 11:03 | NUR ---
SS following up with discharge planning. SS reviewed pt chart and discussed with pt RN. Pt is currently on room air. Pt had heart cath on 12/05/2020. Discharge plan is to home when medically ready for discharge. Probable discharge to home today. SS will continue to follow for discharge planning.
[2020-12-06] MEDS ORDERED: NITR0.4T24 SL (11:21)
--- NOTE | 2020-12-06 11:47 | DS ---
DATE OF DISCHARGE: 12/06/2020 ADMITTING DIAGNOSIS: Chest pain with known previous coronary disease (he has 9 stents). DISCHARGE DIAGNOSES: Resolving chest pain, suspect chronic angina, tobacco abuse, hypertension, hyperlipidemia, chronic anticoagulation, hypertension, gastroesophageal reflux disease. CONSULTS: Cardiology. PROCEDURES: Cardiac catheterization, which did not require any more stenting. HOSPITAL COURSE: The patient is a pleasant 65-year-old male who presented with chest pain. He has known coronary disease with 9 previous stents. We consulted cardiology. He was taken to the laboratory operations coordinator. He does have chronic 3-vessel disease, but no new stents had to be placed. We have opted for medical management. DISPOSITION: Home. ACTIVITY: As tolerated. DIET: Low sodium. DISCHARGE MEDICATIONS: Please see the [facility]AD. P.r.n. nitroglycerin, lisinopril 20 a day, metoprolol 50 b.i.d., Protonix 40 a day, Crestor 40 a day, Brilinta 90 b.i.d., albuterol metered dose inhaler and aspirin 81 a day. TOTAL TIME: [address]: Rao TID: [id number]
--- NOTE | 2020-12-06 12:38 | NUR ---
Discharge Note: ABELARDO JACKSON [address] [place] [address] Discharge instructions and discharge home medications reviewed with Patient and a copy given. All questions have been answered and understanding verbalized. The following instructions and handouts were given: discharge instructions, follow up info, post cath instructions, CP/angina education, smoking cessation education, nitro education, med list. Discontinued lines and drains: Peripheral IV intact. Patient discharged to Home or Self Care with cab pass/Self via [facility] at 1238.
== END 2020-12-06 12:35 | disposition home or self-care (01) | DRG 287 ==
LOC: ER 18:54 → 2 NORTH 23:39 → OBSVTOIN 12-04 23:04
PROVIDERS: ADMIT Student in an Organized Health Care Education/Training Program; ATTEND Student in an Organized Health Care Education/Training Program
PROC: B2111ZZ Fluoroscopy of Multiple Coronary Arteries using Low Osmolar Contrast (ICD-10-PCS; principal; 2020-12-05)
PROC: 4A023N7 Measurement of Cardiac Sampling and Pressure, Left Heart, Percutaneous Approach (ICD-10-PCS; 2020-12-05)
DX: I25.110 Atherosclerotic heart disease of native coronary artery with unstable angina pectoris (principal); E04.1 Nontoxic single thyroid nodule; E78.00 Pure hypercholesterolemia, unspecified; E78.5 Hyperlipidemia, unspecified; E86.0 Dehydration; F17.210 Nicotine dependence, cigarettes, uncomplicated; I11.0 Hypertensive heart disease with heart failure; I50.9 Heart failure, unspecified; J44.9 Chronic obstructive pulmonary disease, unspecified; Z95.5 Presence of coronary angioplasty implant and graft; Z20.822 Contact with and (suspected) exposure to COVID-19; Z95.1 Presence of aortocoronary bypass graft; K21.9 Gastro-esophageal reflux disease without esophagitis; Z71.6 Tobacco abuse counseling; Z79.01 Long term (current) use of anticoagulants
CPT/HCPCS: 36415; 71275; 80053; 80061; 82553; 83690; 83735; 83880; 84443; 84484; 85025; 87426; 93005; 93306; 93454; 96361; 96374; 96376; 99152; 99153; C1769; C1894; G0378; G0379; J1644; J2250; J2270; J2370; J3010; J3490; J7030; J7040; Q9967; 99285-25